=== PATIENT | female | born 1935 | race Caucasian/White ===

== ENCOUNTER 2017-10-21 14:58 | Inpatient (IN) | payer OTHER ==
[~2017-10-21] VITALS: Ht 157.5 cm; Wt 66.5 kg
[2017-10-21 15:20] LABS: HEMATOCRIT 39.5 % (36.0-46.0); HEMOGLOBIN 14.2 G/DL (11.9-15.5); MCH 31.2 PG (29.0-34.0); MCHC 35.9 G/DL (30.0-36.0); MCV 86.8 FL (83-99); PLATELET COUNT 173 K/uL (156-360); RBC DIS.WIDTH-CV 13.1 % (11.8-14.6); RBC DIS.WIDTH-SD 40.9 % (39-53); RED BLOOD COUNT 4.55 M/uL (3.80-5.20); WHITE BLOOD COUNT 18.4 K/uL (4.1-10.2)
[2017-10-21 15:28] LABS: ALBUMIN 3.9 g/dL (3.2-4.8); CHLORIDE 100 mEq/L (99-109); POTASSIUM 4.3 mEq/L (3.7-5.4); SODIUM 136 mEq/L (136-147)
[2017-10-21 15:31] LABS: TOTAL PROTEIN 6.6 g/dL (6.4-8.3)
[2017-10-21 15:32] LABS: TOTAL BILIRUBIN 3.1 mg/dL (0.0-1.0)
[2017-10-21 15:34] LABS: ALKALINE PHOSPHATASE 79 IU/L (3-129); CREATININE 1.3 mg/dL (0.6-1.3); GFR ESTIMATE (CALCULATED) 42 mL/min/
[2017-10-21 15:35] LABS: UREA NITROGEN (BUN) 20 mg/dL (9-23)
[2017-10-21 15:36] LABS: AST (GOT) 14 IU/L (2-34)
[2017-10-21 15:37] LABS: ALT (GPT) 15 IU/L (3-49); LIPASE 11 U/L (1.0-51.0)
[2017-10-21 15:40] LABS: GLUCOSE 670 mg/dL (70-99)
[2017-10-21 15:43] LABS: TROP-I INTERPRETATION NEGATIVE; TROPONIN-I < 0.01 ng/mL (0.0-0.30)
[2017-10-21 16:08] LABS: CARBON DIOXIDE (BICARBONATE) 24.3 MEQ/L (20-31)
[2017-10-21 16:32] LABS: APPEARANCE CLOUDY ((CLEAR)); BILIRUBIN NEGATIVE; BLOOD MODERATE; COLOR YELLOW ((YELLOW)); GLUCOSE (STRIP) >=500; KETONES 5; LEUKOCYTES MODERATE; NITRITE NEGATIVE; PROTEIN (STRIP) 100; SPECIFIC GRAVITY 1.026 (1.000-1.030); UROBILINOGEN 0.2 MG/DL (0.2-1.0)
[2017-10-21 16:41] LABS: BACTERIA RARE /HPF; EPITHELIAL CELLS NONE SEEN /HPF; MUCUS NONE SEEN /LPF; WHITE BLOOD CELLS TNTC /HPF (0-5)
[2017-10-21 16:47] LABS: INTER. NORMALIZED RATIO 1.3
[2017-10-21 16:49] LABS: PTT 26.6 SEC (25-37)
[2017-10-21] MEDS ORDERED: CALCIUM 500 +1 EACH PO (17:38)
[2017-10-21] MEDS ORDERED: ALENDRONATE SOD70 MG PO (17:38)
[2017-10-21] MEDS ORDERED: BUPROPION XL300 MG PO (17:38)
[2017-10-21] MEDS ORDERED: GLUCOPHAGE500 MG PO (17:38)
[2017-10-21] MEDS ORDERED: PREPARATION H C51 G1 PR (17:39)
[2017-10-21] MEDS ORDERED: NAMZARIC 28 MG1 EACH PO (17:39)
[2017-10-21] MEDS ORDERED: PAXIL20 MG PO (17:39)
[2017-10-21] MEDS ORDERED: VITAMIN B-12500 MC5 PO (17:40)
[2017-10-21 21:31] VITALS: BP 109/54
[2017-10-21 23:34] VITALS: BP 82/49
[2017-10-22] VITALS (9 sets, daily range): BP systolic 83–107; BP diastolic 47–64
[2017-10-22 05:46] LABS: HEMATOCRIT 35.6 % (36.0-46.0); MCH 30.8 PG (29.0-34.0); MCHC 33.7 G/DL (30.0-36.0); MCV 91.5 FL (83-99); PLATELET COUNT 138 K/uL (156-360); RBC DIS.WIDTH-CV 13.6 % (11.8-14.6); RBC DIS.WIDTH-SD 45.9 % (39-53); RED BLOOD COUNT 3.89 M/uL (3.80-5.20); WHITE BLOOD COUNT 16.5 K/uL (4.1-10.2)
[2017-10-22 06:09] LABS: CHLORIDE 111 MEQ/L (99-109); GFR ESTIMATE (CALCULATED) 57 mL/min/; GLUCOSE 349 mg/dL (70-99); POTASSIUM 3.8 MEQ/L (3.7-5.4); SODIUM 145 MEQ/L (136-147); UREA NITROGEN (BUN) 18 mg/dL (9-23)
[2017-10-22 08:55] LABS: HEMOGLOBIN A1c (GLYCOHEMOGLOB) 10.9 % (Below 5.7)
[2017-10-23 00:16] VITALS: BP 93/49
[2017-10-23 03:30] LABS: BASOPHIL (%) 0.4 % (0-1); EOSINOPHIL (%) 0.8 % (0-5); EOSINOPHIL COUNT 0.1 K/uL (0-0.3); HEMATOCRIT 32.3 % (36.0-46.0); HEMOGLOBIN 11.2 G/DL (11.9-15.5); IMMATURE GRANULOCYTE (%) 0.7 % (0.0-0.7); LYMPHOCYTE (%) 10.1 % (15-42); MCH 31.9 PG (29.0-34.0); MCHC 34.7 G/DL (30.0-36.0); MONOCYTE COUNT 0.7 K/uL (0-0.8); NEUTROPHIL COUNT 8.2 K/uL (1.8-6.4); PLATELET COUNT 102 K/uL (156-360); RBC DIS.WIDTH-CV 13.5 % (11.8-14.6); RBC DIS.WIDTH-SD 45.3 % (39-53); RED BLOOD COUNT 3.51 M/uL (3.80-5.20); WHITE BLOOD COUNT 10.1 K/uL (4.1-10.2)
[2017-10-23 03:39] LABS: POTASSIUM 3.5 mEq/L (3.7-5.4); SODIUM 144 mEq/L (136-147)
[2017-10-23 03:40] LABS: CHLORIDE 115 mEq/L (99-109)
[2017-10-23 03:41] LABS: GLUCOSE 196 mg/dL (70-99)
[2017-10-23 03:45] LABS: CREATININE 0.8 mg/dL (0.6-1.3); GFR ESTIMATE (CALCULATED) > 59 mL/min/
[2017-10-23 03:46] LABS: UREA NITROGEN (BUN) 13 mg/dL (9-23)
[2017-10-23 03:56] VITALS: BP 105/54
[2017-10-23 07:07] VITALS: BP 130/68
[2017-10-23 12:00] VITALS: BP 114/64
[2017-10-23 15:18] VITALS: BP 115/62
[2017-10-23 21:23] VITALS: BP 99/58
[2017-10-24] VITALS (7 sets, daily range): BP systolic 114–151; BP diastolic 60–91
[2017-10-24 05:39] LABS: BASOPHIL (%) 0.5 % (0-1); EOSINOPHIL (%) 1.8 % (0-5); EOSINOPHIL COUNT 0.1 K/uL (0-0.3); HEMATOCRIT 31.1 % (36.0-46.0); HEMOGLOBIN 10.4 G/DL (11.9-15.5); IMMATURE GRANULOCYTE (%) 0.8 % (0.0-0.7); LYMPHOCYTE (%) 8.6 % (15-42); LYMPHOCYTE COUNT 0.7 K/uL (1.0-2.8); MCH 30.4 PG (29.0-34.0); MCHC 33.4 G/DL (30.0-36.0); MCV 90.9 FL (83-99); MONOCYTE (%) 8.1 % (3-12); MONOCYTE COUNT 0.6 K/uL (0-0.8); NEUTROPHIL (%) 80.2 % (45-76); NEUTROPHIL COUNT 6.3 K/uL (1.8-6.4); PLATELET COUNT 112 K/uL (156-360); RBC DIS.WIDTH-CV 13.3 % (11.8-14.6); RBC DIS.WIDTH-SD 44.5 % (39-53); RED BLOOD COUNT 3.42 M/uL (3.80-5.20); WHITE BLOOD COUNT 7.9 K/uL (4.1-10.2)
[2017-10-24 05:54] LABS: CHLORIDE 112 MEQ/L (99-109); CREATININE 0.6 MG/DL (0.6-1.3); GFR ESTIMATE (CALCULATED) > 59 mL/min/; GLUCOSE 201 mg/dL (70-99); POTASSIUM 3.1 MEQ/L (3.7-5.4); SODIUM 142 MEQ/L (136-147); UREA NITROGEN (BUN) 9 mg/dL (9-23)
[2017-10-24 08:34] LABS: ALBUMIN 2.5 G/DL (3.2-4.8); ALKALINE PHOSPHATASE 46 IU/L (3-129); ALT (GPT) 12 IU/L (3-49); AST (GOT) 13 IU/L (2-34); DIRECT BILIRUBIN 0.2 mg/dL (0.0-0.3); TOTAL BILIRUBIN 1.1 MG/DL (0.0-1.0); TOTAL PROTEIN 4.5 G/DL (6.4-8.3)
[2017-10-25 02:00] VITALS: BP 148/80
[2017-10-25 06:05] LABS: BASOPHIL (%) 0.5 % (0-1); EOSINOPHIL (%) 2.4 % (0-5); EOSINOPHIL COUNT 0.1 K/uL (0-0.3); HEMATOCRIT 29.9 % (36.0-46.0); IMMATURE GRANULOCYTE (%) 0.9 % (0.0-0.7); LYMPHOCYTE (%) 17.1 % (15-42); LYMPHOCYTE COUNT 0.9 K/uL (1.0-2.8); MCHC 33.4 G/DL (30.0-36.0); MCV 89.8 FL (83-99); MONOCYTE COUNT 0.7 K/uL (0-0.8); NEUTROPHIL (%) 67.1 % (45-76); NEUTROPHIL COUNT 3.7 K/uL (1.8-6.4); PLATELET COUNT 125 K/uL (156-360); RBC DIS.WIDTH-CV 13.1 % (11.8-14.6); RBC DIS.WIDTH-SD 43.2 % (39-53); RED BLOOD COUNT 3.33 M/uL (3.80-5.20); WHITE BLOOD COUNT 5.5 K/uL (4.1-10.2)
[2017-10-25 07:19] LABS: CHLORIDE 109 MEQ/L (99-109); CREATININE 0.6 MG/DL (0.6-1.3); GFR ESTIMATE (CALCULATED) > 59 mL/min/; GLUCOSE 180 mg/dL (70-99); POTASSIUM 2.9 MEQ/L (3.7-5.4); SODIUM 140 MEQ/L (136-147); UREA NITROGEN (BUN) 6 mg/dL (9-23)
[2017-10-25 09:24] VITALS: BP 139/69
[2017-10-25 09:26] LABS: MAGNESIUM 1.8 mg/dl (1.3-2.7)
[2017-10-25 11:30] VITALS: BP 148/72
[2017-10-25 15:39] VITALS: BP 168/71
[2017-10-25 19:37] VITALS: BP 158/67
[2017-10-26 06:12] LABS: HEMATOCRIT 30.3 % (36.0-46.0); HEMOGLOBIN 10.3 G/DL (11.9-15.5); MCH 30.5 PG (29.0-34.0); MCV 89.6 FL (83-99); PLATELET COUNT 128 K/uL (156-360); RBC DIS.WIDTH-CV 13.1 % (11.8-14.6); RED BLOOD COUNT 3.38 M/uL (3.80-5.20); WHITE BLOOD COUNT 5.8 K/uL (4.1-10.2)
[2017-10-26 06:49] LABS: CHLORIDE 114 MEQ/L (99-109); CREATININE 0.6 MG/DL (0.6-1.3); GFR ESTIMATE (CALCULATED) > 59 mL/min/; GLUCOSE 164 mg/dL (70-99); POTASSIUM 3.2 MEQ/L (3.7-5.4); SODIUM 145 MEQ/L (136-147); UREA NITROGEN (BUN) 5 mg/dL (9-23)
[2017-10-26 12:00] VITALS: BP 162/80
[2017-10-27 00:03] VITALS: BP 141/67
[2017-10-27 07:27] VITALS: BP 157/72
[2017-10-27] MEDS ORDERED: CEFDINIR300 MG PO ×2 (14:46→15:35)
[2017-10-27] MEDS ORDERED: DONEPEZIL HCL10 MG PO ×2 (14:48→15:36)
[2017-10-27] MEDS ORDERED: NOVOLOG 10100 UNITS/ SC ×2 (14:48→15:39)
[2017-10-27] MEDS ORDERED: JANUVIA100 MG PO (14:57)
[2017-10-27 15:30] VITALS: BP 133/66
== END 2017-10-27 19:41 | disposition home or self-care (01) | DRG 871 ==
LOC: EME 14:58 → 4EAST 18:30 → EDOF 18:30 → 2EAST 18:30 → ENRESERV 18:41 → 5EAST 21:02 → ENRESERV 10-22 00:58 → 4EAST 10-22 01:46 → ENRESERV 10-25 08:58 → 2EAST 10-25 11:24
PROVIDERS: Hospitalist; Internal Medicine; Nurse Practitioner Family
DX: A41.51 Sepsis due to Escherichia coli [E. coli] (principal); N10 Acute pyelonephritis; E11.65 Type 2 diabetes mellitus with hyperglycemia; E83.52 Hypercalcemia; E86.0 Dehydration; K74.60 Unspecified cirrhosis of liver; G30.9 Alzheimer's disease, unspecified; F02.80 Dementia in other diseases classified elsewhere, unspecified severity, without behavioral disturbance, psychotic disturbance, mood disturbance, and anxiety; R00.0 Tachycardia, unspecified; I95.9 Hypotension, unspecified; M81.0 Age-related osteoporosis without current pathological fracture; N20.1 Calculus of ureter; F41.9 Anxiety disorder, unspecified; G92 Toxic encephalopathy; E87.6 Hypokalemia; E87.2 Acidosis; Z87.440 Personal history of urinary (tract) infections; Z87.442 Personal history of urinary calculi; K40.90 Unilateral inguinal hernia, without obstruction or gangrene, not specified as recurrent
CPT/HCPCS: 70450; 71046; 74177; 80048; 80053; 80076; 81003; 82010; 82607; 82803; 82948; 83036; 83605; 83690; 83735; 84443; 84484; 85025; 85027; 85610; 85730; 87040; 87077; 87086; 87186; 87641; 87801; 92526 GN; 92610 GN; 93005; 97530 GP; 99281; 99285; C2625; J0131; J0330; J0692; J0696; J1644; J1815; J2060; J2270; J2405; J2543; J2710; J3010; J3370; J3480; J7030; J7040; J7050